=== PATIENT | male | born 1975 | race Caucasian/White ===

== ENCOUNTER 2020-08-29 13:34 | Emergency (ER) | payer OTHER ==
[~2020-08-29] VITALS: Ht 157.5 cm; Wt 80.8 kg
[2020-08-29 13:34] VITALS: BP 128/77
[2020-08-29] MEDS ORDERED: LEVO125T41 PO (13:42)
[2020-08-29] MEDS ORDERED: CIPR0.3S6 AU (14:35)
[2020-08-29] MEDS ORDERED: CIPR-249 PO (14:35)
[2020-08-29] MEDS ORDERED: PREDOPD AU (14:35)
== END 2020-08-29 14:45 | disposition home or self-care (01) ==
LOC: M ED 13:34
DX: H66.93 Otitis media, unspecified, bilateral (principal); H60.93 Unspecified otitis externa, bilateral; E03.9 Hypothyroidism, unspecified; Q90.9 Down syndrome, unspecified; Z79.890 Hormone replacement therapy

== ENCOUNTER 2020-10-30 10:02 | Emergency (ER) | payer OTHER ==
[~2020-10-30] VITALS: Ht 157.5 cm; Wt 76.7 kg
[~2020-10-30 10:02] MED LIST: CIPR-249 PO; CIPR0.3S6 AU; LEVO125T41 PO; PREDOPD AU
[2020-10-30 10:03] VITALS: BP 121/74
[2020-10-30] MEDS ORDERED: LEVO150T7 (10:15)
== END 2020-10-30 12:20 | disposition home or self-care (01) ==
LOC: M ED 10:02
DX: M85.68 Other cyst of bone, other site (principal); Q90.9 Down syndrome, unspecified; E03.9 Hypothyroidism, unspecified; Z79.890 Hormone replacement therapy

== ENCOUNTER 2020-11-04 09:55 | Emergency (ER) | payer OTHER ==
[~2020-11-04] VITALS: Ht 157.5 cm; Wt 77.4 kg
[~2020-11-04 09:55] MED LIST changes: +LEVO150T7
--- NOTE | 2020-11-04 11:52 | REP ---
INDICATION: trauma. COMPARISON: None. TECHNIQUE: Four views of the right elbow were obtained. FINDINGS: There is an acute fracture of the trochlea of the ulna. There is an avulsion fracture of the radial head. There is a large elbow joint effusion. There is a large amount of fluid in the olecranon bursa. IMPRESSION: 1. Avulsion fracture of the radial head, which appears acute, with large elbow joint effusion. 2. Fracture of the trochlea of the ulna, of indeterminate age. 3. There is a large amount of fluid in the olecranon bursa, consistent with bursitis. Incidental Findings: Radial head fracture. Olecranon bursitis. The critical information above was relayed directly by me by telephone to SHERIF CHARLES on 11/04/2020 at 11:47 am with readback verification. <Electronically signed by Onofre Lara > 11/04/20 [id number]
[2020-11-04 12:03] LABS: BASO # 0.2 10^3/uL (0.0-0.2); BASO % 1.8 % (0.0-1.0); EOS # 0.2 10^3/uL (0.0-0.5); EOS % 1.7 % (0.0-3.0); HEMATOCRIT 44.2 % (42.0-52.0); HEMOGLOBIN 14.6 g/dl (13.5-17.5); LYMPH # 1.6 10^3/uL (1.5-5.0); LYMPH % 18.4 % (24.0-44.0); MEAN CORPUSCULAR HEMOGLOBIN 32.6 pg (27.0-33.0); MEAN CORPUSCULAR VOLUME 98.7 fl (80.0-96.0); MONO % 10.9 % (2.0-8.0); NEUTROPHILS # 5.9 10^3/uL (1.5-8.5); NEUTROPHILS % 66.9 % (36.0-66.0); PLATELET COUNT, AUTOMATED 286 10^3/uL (150-450); RED BLOOD COUNT 4.48 10^6/uL (4.30-6.10); WHITE BLOOD COUNT 8.8 10^3/uL (4.0-10.0)
[2020-11-04] MEDS ORDERED: ACETAMINOPHEN 325 MG TAB PO ONE (12:20)
[2020-11-04] MEDS ORDERED: IBUP-1022 PO (12:42)
[2020-11-04] MEDS ORDERED: AUGM875T28 PO (12:43)
[2020-11-04 13:41] VITALS: BP 119/67
--- NOTE | 2020-11-05 08:09 | ED PDOC ---
Post-Departure Follow-Up fax radiology report Judy Hernández MD Nov 05, 2020 08:09
== END 2020-11-04 13:45 | disposition home or self-care (01) ==
LOC: M ED 09:55
DX: M25.421 Effusion, right elbow (principal); M70.21 Olecranon bursitis, right elbow; E03.9 Hypothyroidism, unspecified; Z79.890 Hormone replacement therapy

== ENCOUNTER → 2020-11-09 | Outpatient (CLI) | payer OTHER ==
[~2020-11-09] MED LIST changes: +AUGM875T28 PO; +IBUP-1022 PO
--- NOTE | 2020-11-09 11:07 | REP ---
INDICATION: PAIN IN RT ELBOW. COMPARISON: 11/04/2020. TECHNIQUE: Four views right elbow. FINDINGS: There is a moderate-sized spur of the coronoid process of the proximal ulna. 2 small smoothly marginated calcifications are seen adjacent to the olecranon which could represent calcifications in the distal triceps tendon, old avulsion fractures are not excluded. There is no definite radiographic evidence of acute fracture. There is a large joint effusion. IMPRESSION: Moderate spurring coronoid process proximal ulna. Small smoothly marginated calcifications adjacent to the olecranon may represent tendinous calcifications or old avulsion fractures. No definite acute fracture. No dislocation. Large joint effusion. <Electronically signed by Glen Loo > 11/09/20 [id number]
== END ==
LOC: M SOG 10:21
PROVIDERS: ATTEND Orthopaedic Surgery
DX: M25.521 Pain in right elbow (principal); M25.721 Osteophyte, right elbow